=== PATIENT | female | born 1995 | race Asian ===

== ENCOUNTER 2017-01-27 13:16 | Emergency (ER) | payer OTHER ==
[~2017-01-27] VITALS: Ht 157.5 cm; Wt 65.9 kg
[2017-01-27] MEDS ORDERED: METHOCARBAMOL 500 MG TABLET PO ONE (14:45)
[2017-01-27] MEDS ORDERED: IBUPROFEN 600 MG TABLET PO ONE (14:45)
[2017-01-27 16:43] VITALS: BP 128/82
== END 2017-01-27 17:14 | disposition home or self-care (01) ==
LOC: EMS 13:20
DX: S30.0XXA Contusion of lower back and pelvis, initial encounter (principal); S60.211A Contusion of right wrist, initial encounter; W01.0XXA Fall on same level from slipping, tripping and stumbling without subsequent striking against object, initial encounter; Y93.E1 Activity, personal bathing and showering; Y92.89 Other specified places as the place of occurrence of the external cause; Y99.8 Other external cause status
CPT/HCPCS: 99284